=== PATIENT | female | born 1985 ===

== ENCOUNTER 2018-11-14 08:41 | Inpatient (IN) | payer OTHER ==
[2018-11-14 10:13] VITALS: BMI 34.2
[2018-11-14] MEDS ORDERED: AMPicillin 2 GM in Sodium Chloride 0.9% 100 ML IVPB SCH (10:15)
[2018-11-14] MEDS ORDERED: Betamethasone Soluspan 30 mg/5mL Inj Susp IM SCH (10:45)
--- NOTE | 2018-11-14 11:12 | OBADHP ---
Datetime: 11/14/2018 11:04 Admit Comment, IP Provider: Discussed with pt about prematurity and that IV antibiotics and steroids will be started and I will consult Perinatologist she understands and agreed. Questions and concern s answered to the best of my abilities. Discussed with Dr Bowie and in view of severe prematurity and [facility] advises to transfer to a tertiary center where ICN available, I agreed. Pt informed and u nderstands and agreed to be transfered to [facility]. Arrangements made for transfer Extremities - PN: Normal Abdomen - PN: Abnormal Back - PN: Normal Breast - PN: Not Done Lungs - PN: Normal Heart - PN: Normal Thyroid - PN: Normal Neurologic - PN: Not Done HEENT - PN: Normal General - PN: Normal FHR - Baseline A Provider: 140's Amniotic Fluid Color, Provider: Clear Membranes, Provider: Ruptured Comments, ACOG Physical Exam: Abd gravid NT fundus at 32 cm above sp, FCA +; Speculum exam by Dr Ocampo gross pooling of fluid clear but cx appears closed, Ext no calf tenderness. Gestation - Est Wks by US: 32 w 6 d Pool Provider: Positive IP Hx Assessment: The History has been Reviewed and is Current Vital Signs Provider: Reviewed IP Chief Complaint: Suspected ruptured membranes NICHD Variability Prov Fetus A: Moderate 6-25bpm NICHD Decel Fetus A IP Provider: None Dilatation, Provider: closed Effacement, Provider: none DTRs - PN: Normal EGA AdmitDate IP: 32.6 IP Adm Impression: , intrauterine ; Ruptured Membranes IP Admit Plan: Admit to unit; Initiate labor protocol Datetime: 11/14/2018 10:06 Pelvic Type - PN: Adequate Genitourinary Exam: Normal
[2018-11-14 11:20] LABS: BASO % 0.6 % (0.0-2.0); EOS # 0.1 K/uL (0.0-0.7); EOS % 1.9 % (0.0-4.0); HEMOGLOBIN 10.9 g/dL (12.0-16.0); LYMPH # 1.3 K/uL (1.0-4.3); LYMPH % 18.7 % (20.0-40.0); MEAN CELL VOLUME 80.1 fl (81.0-99.0); MEAN CORPUSCULAR HEMOGLOBIN 26.9 pg (27.0-31.0); MEAN CORPUSCULAR HGB CONC 33.6 g/dL (33.0-37.0); MEAN PLATELET VOLUME 7.8 fl (7.2-11.7); MONO # 0.5 K/uL (0.0-0.8); MONO % 6.7 % (0.0-10.0); NEUT # 4.9 K/uL (1.8-7.0); NEUT % 72.1 % (50.0-75.0); NRBC % 0.1 % (0.0-0.0); RBC 4.03 Mil/uL (3.80-5.20); RED CELL DISTRIBUTION WIDTH 14.4 % (11.5-14.5); WHITE BLOOD COUNT 6.8 K/uL (4.8-10.8)
[2018-11-14 20:17] VITALS: BP 109/80; PULSE 110; RESP 18; O2SAT 98
== END 2018-11-14 13:10 | disposition short-term general hospital (02) | DRG 372 ==
LOC: H.EROB2 08:41 → H.L&D 10:12
PROVIDERS: ADMIT Specialist; ATTEND Specialist
PROC: 4A1HXCZ Monitoring of Products of Conception, Cardiac Rate, External Approach (ICD-10-PCS; principal; 2018-11-14)
DX: O60.14X0 Preterm labor third trimester with preterm delivery third trimester, not applicable or unspecified (principal); Z3A.32 32 weeks gestation of pregnancy